=== PATIENT | female | born 1980 | race Caucasian/White ===

== ENCOUNTER 2016-10-20 11:58 | Emergency (ER) | payer SELFPAY ==
--- NOTE | 2016-10-20 12:16 | ER Document Report ---
ED Medical Screen (RME) - General Stated Complaint: LEFT EYE REDNESS,IRRITATION Notes: 36 yo female c/o left eye pain, redness and swelling to left eye x 2-3 days. + drainage. noncontact wearer. feels like alot of pressure behind eye. blurred vision. - Related Data Allergies/Adverse Reactions: No Known Allergies Allergy (Verified 10/20/16 12:11) Past Medical History Psychiatric Medical History: Reports: Hx Depression - Immunizations Hx Diphtheria, Pertussis, Tetanus Vaccination: Yes - unk Physical Exam - Vital signs Vitals: Temp Pulse Resp BP Pulse Ox 97.8 F 78 16 107/64 98 10/20/16 12:09 10/20/16 12:09 10/20/16 12:09 10/20/16 12:09 10/20/16 12:09 Course - Vital Signs Vital signs: Temp Pulse Resp BP Pulse Ox 97.8 F 78 16 107/64 98 10/20/16 12:09 10/20/16 12:09 10/20/16 12:09 10/20/16 12:09 10/20/16 12:09
[2016-10-20] MEDS ORDERED: KETOROLAC TROMETHAMINE 0.45% 4 DROP/0.4 ML DROPERETTE OS ONE (12:38)
[2016-10-20] MEDS ORDERED: TETRACAINE HCL 0.5% OPH SOLN 2 ML OS ONE (12:39)
--- NOTE | 2016-10-20 13:38 | ER Document Report ---
ED Eye Complaint - General Chief Complaint: Eye Pain Stated Complaint: LEFT EYE REDNESS,IRRITATION Mode of Arrival: Ambulatory Information source: Patient Notes: 36-year-old female presents to the emergency department complaining of left eye redness, irritation, and drainage last 2 days. She reports was cooking a beef roast in the abdomen 2 days ago when she took it out part of the juices splashed into her left eye. Reports initially did not have any obvious injury or pain however subsequently began developing irritation, redness, and drainage. Reports associated crusting and eyelid swelling in the morning. Denies headache or vision changes. TRAVEL OUTSIDE OF THE [place] IN LAST 30 DAYS: No - HPI Eye location: Left Injury: Yes Quality of pain: Achy, Burning Severity: Moderate Pain Level: 3 Exposure: Conjunctivitis Contact lenses worn: No Associated symptoms: Burning, Pain, Redness, Eyelid swelling, Foreign body sensation. denies: Orbital swelling, Blurred vision, Double vision, Decreased vision, Loss of vision - Related Data Allergies/Adverse Reactions: No Known Allergies Allergy (Verified 10/20/16 12:11) Past Medical History - General Information source: Patient - Social History Smoking Status: Current Every Day Smoker Chew tobacco use (# tins/day): No Frequency of alcohol use: None Drug Abuse: Marijuana Lives with: Family Family History: Reviewed & Not Pertinent Patient has suicidal ideation: No Patient has homicidal ideation: No Renal/ Medical History: Denies: Hx Peritoneal Dialysis Psychiatric Medical History: Reports: Hx Depression Surgical Hx: Negative - Immunizations Hx Diphtheria, Pertussis, Tetanus Vaccination: Yes - unk Review of Systems - Review of Systems Constitutional: No symptoms reported EENT: See HPI Cardiovascular: No symptoms reported Respiratory: No symptoms reported Gastrointestinal: No symptoms reported Genitourinary: No symptoms reported Female Genitourinary: No symptoms reported Musculoskeletal: No symptoms reported Skin: No symptoms reported Hematologic/Lymphatic: No symptoms reported Neurological/Psychological: No symptoms reported -: Yes All other systems reviewed and negative Physical Exam - Vital signs Vitals: Temp Pulse Resp BP Pulse Ox 97.8 F 78 16 107/64 98 10/20/16 12:09 10/20/16 12:09 10/20/16 12:09 10/20/16 12:09 10/20/16 12:09 Interpretation: Normal - General General appearance: Appears well, Alert In distress: None - HEENT Head: Normocephalic, Atraumatic Eyes: Periorbital edema - Mild swelling to left upper eyelid.. No: Periorbital ecchymosis Conjunctiva: Injected - Left, Purulent discharge - Small amount of slightly whitish mostly clear drainage from left eye. Cornea: Normal. No: Corneal abrasion, Corneal ulcer, Dendrite, Embedded foreign body, Flourescein stain uptake, Opacified, Superficial foreign body Extraocular movements intact: Yes Eyelashes: Normal Pupils: PERRL Visual acuity- Right eye: 20/30 Visual acuity- Left eye: 20/30 Visual acuity- Both eyes: 20/30 Corrective lenses worn: Yes Lids everted for exam: bilateral: Normal Anterior chamber: Normal Fundascopic: Normal Nerve palsy: No Visual miles normal: Yes Ears: Normal External canal: Normal Tympanic membrane: Normal Sinus: Normal Nasal: Normal Mouth/Lips: Normal Mucous membranes: Normal, Moist Pharynx: Normal. No: Blood in hypopharynx, Erythema, Exudate, Peritonsillar abscess, Post nasal drainage, Retropharyngeal abscess, Tonsillar hypertrophy, Uvular edema, Potential airway comprom., Other Neck: Normal. No: Anterior cervical chain, Posterior cervical chain, Lymphadenopathy, Meningismus, Subcutaneous emphysema - Respiratory Respiratory status: No respiratory distress Chest status: Nontender Breath sounds: Normal Chest palpation: Normal - Cardiovascular Rhythm: Regular Heart sounds: Normal auscultation Murmur: No Pulses: Normal: Radial Normal capillary refill: Yes - Back Back: Normal, Nontender - Extremities General upper extremity: Normal inspection, Normal color, Normal ROM General lower extremity: Normal inspection, Normal color, Normal ROM, Normal weight bearing - Neurological Neuro grossly intact: Yes Cognition: Normal Orientation: AAOx4 Lolita Coma Scale Eye Opening: Spontaneous Maple Coma Scale Verbal: Oriented Lolita Coma Scale Motor: Obeys Commands Lolita Coma Scale Total: 15 Speech: Normal Motor strength normal: LUE, RUE, LLE, RLE Sensory: Normal - Psychological Associated symptoms: Normal affect, Normal mood - Skin Skin Temperature: Warm Skin Moisture: Dry Skin Color: Normal Course - Re-evaluation Re-evalutation: 10/20/16 13:30 Patient hemodynamically stable, in no distress, afebrile. Patient presentation and physical exam findings suggestive of uncomplicated conjunctivitis at this time. No suggestion of foreign body or other emergent ophthalmologic etiology at this time. Visual acuity intact. Patient appears so for discharge and agrees with home care, follow-up with PCP and ophthalmology, and ED return precautions. - Vital Signs Vital signs: Temp Pulse Resp BP Pulse Ox 97.7 F 66 18 109/69 100 10/20/16 13:51 10/20/16 13:51 10/20/16 13:51 10/20/16 13:51 10/20/16 13:51 Discharge - Discharge Clinical Impression: Conjunctivitis, left eye Qualifiers: Conjunctivitis type: acute Acute conjunctivitis type: unspecified Qualified Code(s): H10.32 - Unspecified acute conjunctivitis, left eye Condition: Stable Disposition: HOME, SELF-CARE Instructions: Conjunctivitis ([facility]), Ketorolac Tromethamine Eye Drops ([facility]), Eyedrop Use ([facility]), Eye Injury ([facility]) Additional Instructions: Apply 1 drop of the provided eyedrops (Ketorolac) every 6 hours if needed for eye discomfort. Follow-up with ophthalmology tomorrow as discussed. Return to the Emergency Department for any worsening symptoms or concerns. Prescriptions: Polymyxin B Sulf/Trimethoprim [Polytrim Eye Drops] 1 drop OS QID 7 Days Referrals: BHAKTI FAITH MD [ACTIVE STAFF] - Follow up tomorrow
[2016-10-20 14:00] VITALS: BP 109/69
== END 2016-10-20 13:55 | disposition home or self-care (01) ==
LOC: ER 11:58
DX: H10.32 Unspecified acute conjunctivitis, left eye (principal); F17.200 Nicotine dependence, unspecified, uncomplicated
CPT/HCPCS: 99282

== ENCOUNTER 2017-05-17 23:59 | Emergency (ER) | payer OTHER ==
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
[2017-05-18 00:31] LABS: ABSOLUTE BASOPHILS # (AUTO) 0.1 10^3/uL (0.0-0.2); ABSOLUTE LYMPHOCYTES (AUTO) 2.3 10^3/uL (0.5-4.7); ABSOLUTE MONOCYTES (AUTO) 0.8 10^3/uL (0.1-1.4); ABSOLUTE NEUT (AUTO) 8.4 10^3/uL (1.7-8.2); BASOPHILS % (AUTO) 0.7 % (0-2); EOSINOPHILS % (AUTO) 0.1 % (0-6); HEMATOCRIT 42.2 % (36.0-47.0); HEMOGLOBIN 14.4 g/dL (12.0-15.5); LYMPHOCYTES % (AUTO) 19.7 % (13-45); MEAN CORPUSCULAR HEMOGLOBIN 33.6 pg (27.0-33.4); MEAN CORPUSCULAR VOLUME 99 fl (80-97); MONOCYTES % (AUTO) 7.2 % (3-13); RED BLOOD COUNT 4.28 10^6/uL (3.72-5.28); RED CELL DISTRIBUTION WIDTH 13.6 % (11.5-14.0); SEGMENTED NEUTROPHILS % (AUTO) 72.3 % (42-78); WHITE BLOOD COUNT 11.6 10^3/uL (4.0-10.5)
[2017-05-18 00:42] LABS: ALANINE AMINOTRANSFERASE 31 U/L (9-52); ALBUMIN 4.5 g/dL (3.5-5.0); ALCOHOL 150 mg/dL (NONE DETECTED); ALKALINE PHOSPHATASE 101 U/L (38-126); ANION GAP 14 (5-19); ASPARTATE AMINO TRANSFERASE 37 U/L (14-36); BILIRUBIN,DIRECT 0.4 mg/dL (0.0-0.4); BILIRUBIN,TOTAL 0.6 mg/dL (0.2-1.3); BLOOD UREA NITROGEN 9 mg/dL (7-20); CARBON DIOXIDE 19 mmol/L (22-30); CHLORIDE 105 mmol/L (98-107); CREATININE RESULT 0.82 mg/dL (0.52-1.25); GLUCOSE 73 mg/dL (75-110); POTASSIUM 4.5 mmol/L (3.6-5.0); SODIUM 137.6 mmol/L (137-145); TOTAL PROTEIN 7.6 g/dL (6.3-8.2)
[2017-05-18 01:33] LABS: APPEARANCE,URINE CLEAR; BILIRUBIN,URINE NEGATIVE (NEGATIVE); GLUCOSE, URINE NEGATIVE (NEGATIVE); KETONES,URINE TRACE mg/dL (NEGATIVE); LEUKOCYTE ESTERASE,URINE NEGATIVE (NEGATIVE); NITRITE,URINE NEGATIVE (NEGATIVE); PROTEIN,URINE NEGATIVE (NEGATIVE); URINE SPECIFIC GRAVITY 1.006; UROBILINOGEN,URINE NEGATIVE mg/dL (<2.0)
[2017-05-18 03:02] LABS: URINE BARBITURATES SCREEN NEGATIVE; URINE METHADONE SCREEN NEGATIVE; URINE OPIATES LOW NEGATIVE; URINE PHENCYCLIDINE SCREEN NEGATIVE
--- NOTE | 2017-05-18 08:15 | EKG REPORT ---
SEVERITY:- ABNORMAL ECG - SINUS TACHYCARDIA RIGHT ATRIAL ABNORMALITY : Confirmed by: Kadeem Simon MD 18-May-2017 08:13:41
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
[2017-05-18 11:55] VITALS: BP 128/96
== END 2017-05-18 11:54 | disposition home or self-care (01) ==
LOC: ER 23:59
DX: R45.851 Suicidal ideations (principal); F31.30 Bipolar disorder, current episode depressed, mild or moderate severity, unspecified
CPT/HCPCS: 36415; 80053; 80307; 81001; 84703; 85025; 93005; 93010; 99285

== ENCOUNTER 2017-12-09 20:39 | Emergency (ER) | payer SELFPAY ==
[2017-12-09 20:55] VITALS: BP 130/94
[2017-12-09] MEDS ORDERED: TETRACAINE HCL 0.5% OPH SOLN 4 ML OU ONE (21:49)
[2017-12-09] MEDS ORDERED: KETOROLAC TROMETHAMINE 60 MG/2 ML SDV IM ONE (21:49)
[2017-12-09] MEDS ORDERED: OXYCODONE-ACETAMINOPHEN 5-325 MG TABLET PO ONE (21:49)
--- NOTE | 2017-12-09 21:52 | ER Document Report ---
ED General - General Chief Complaint: Redness of Eye Stated Complaint: RIGHT EYE IRRITATION Time Seen by Provider: 12/09/17 21:43 Notes: 37-year-old female presents with right eye pain severe began 48 hours ago was felt like a foreign body sensation but it has increased in severity and change in quality to where is now deep boring pain affecting her IN the whole right side of her head accompanied by photophobia nausea but no vomiting. No trauma no chemicals. History of that eye infection which she is not sure what it was called but the drops were very expensive. At baseline her vision is normal but now she states that she can barely see light dark. TRAVEL OUTSIDE OF THE [place] IN LAST 30 DAYS: No - Related Data Allergies/Adverse Reactions: No Known Allergies Allergy (Verified 10/20/16 12:11) Past Medical History - Social History Smoking Status: Current Every Day Smoker Family History: None Renal/ Medical History: Denies: Hx Peritoneal Dialysis Psychiatric Medical History: Reports: Hx Depression - Immunizations Hx Diphtheria, Pertussis, Tetanus Vaccination: Yes - unk Review of Systems - Review of Systems Notes: REVIEW OF SYSTEMS GEN: Denies fever, chills, weight loss ENT: Denies sore throat, nasal discharge, ear pain EYES: Pain photophobia blurry vision CV: Denies chest pain, palpitations, edema RESP: Denies cough, shortness of breath, wheezing GI: Denies abdominal pain, nausea, vomiting, diarrhea MSK: Denies joint pain/swelling, edema, SKIN: Denies rash, skin lesions LYMPH: Denies swollen glands/lymph nodes NEURO: Headache, denies focal weakness or numbness, dizziness PSYCH: Denies depression, suicidal or homicidal ideation PHYSICAL EXAMINATION General: Patient has her sunglasses on and her hair is combed down over her eyes. When I turn the lights on in the room she screams and covers her face. Head: Atraumatic, normocephalic ENT: Mouth normal, oropharynx moist, no exudates or tonsillar enlargement Eyes: Normal eyelids bilaterally. Left eye normal. Patient refuses to open right eye secondary to severe blepharospasm. Neck: No JVD, supple, no guarding CVS: Normal rate, regular rhythm, no murmurs Resp: No resp distress, equal and normal breath sounds bilaterally GI: Nondistended, soft, no tenderness to palpation, no rebound or guarding Ext: No deformities, no edema, normal range of motion in upper and lower ext Back: No CVA or midline TTP Skin: No rash, warm Lymphatic: No lymphadeopathy noted Neuro: Awake, alert. Face symmetric. GCS 15. Physical Exam - Vital signs Vitals: Temp Pulse Resp BP Pulse Ox 97.7 F 102 H 16 130/94 H 99 12/09/17 20:55 12/09/17 20:55 12/09/17 20:55 12/09/17 20:55 12/09/17 20:55 Course - Re-evaluation Re-evalutation: 12/09/17 22:37 Patient presents with painful vision loss right eye. Initially she denies trauma but then says that she may have stuck her eye with her mascara brush. That said she is very photophobic including consensual photophobia and has no evidence of eye trauma. I was able to control her pain mostly with tetracaine but she still experienced a lot of photophobia. Was given Toradol and Percocet as well. I was able to examine her eye at this point. She has finger counting capabilities at 3 feet but no better. Her extraocular movements she states are painful but they are full on exam. Her lids are normal. Slit-lamp exam shows no hyphema or hypopyon. Her anterior chamber seems shallow and her ocular pressure is 15. Fluorescein staining reveals only very faint punctate erosions and inversion of the lid shows no foreign body. I have not come up with a satisfactory answer for her painful visual loss I consulted ophthalmology at [facility]. 12/09/17 22:39 12/09/17 23:17 Attempted to speak with ophthalmology Dr. Buckley but he has not interventional cardiologist and did not call back. Spoke with Dr. Taqueria Sainz at [facility] who accepted the patient to the emergency department. She was given directions to [facility] in transfer by private vehicle to be driven by her partner. - Vital Signs Vital signs: Temp Pulse Resp BP Pulse Ox 97.7 F 102 H 16 130/94 H 99 12/09/17 20:55 12/09/17 20:55 12/09/17 20:55 12/09/17 20:55 12/09/17 20:55 Critical Care Note - Critical Care Note Total time excluding time spent on procedures (mins): 31 Comments: The above patient is critically ill. Not including procedures, but including direct re-evaluations, speaking with patient and/or consultants, interpreting results, and documenting, I spent the total amount of minute listed listed above on critical care time Discharge - Discharge Clinical Impression: Acute visual loss Qualifiers: Laterality: unspecified laterality Qualified Code(s): H53.139 - Sudden visual loss, unspecified eye Condition: Fair Disposition: [facility] Additional Instructions: [facility] by ophthalmology but we are allowing you to be driven there rather than wait for an ambulance. Please proceed directly there and I have provided you directions.
== END 2017-12-09 23:39 | disposition short-term general hospital (02) ==
LOC: ER 20:39
DX: H53.139 Sudden visual loss, unspecified eye (principal)
CPT/HCPCS: 99284; 96372; J1885